=== PATIENT | female | born 1990 | race Two or more races ===

== ENCOUNTER 2016-06-03 19:20 | Emergency (ER) | payer MEDICAID ==
[2016-06-03] MEDS ORDERED: traMADol 50 MG TABLET PO STA (22:27)
[2016-06-03] MEDS ORDERED: traMADol 50 MG TABLET PO ONE (22:32)
== END 2016-06-03 22:37 | disposition home or self-care (01) ==
DX: O20.9 Hemorrhage in early pregnancy, unspecified (principal); O99.331 Smoking (tobacco) complicating pregnancy, first trimester; Z3A.01 Less than 8 weeks gestation of pregnancy
CPT/HCPCS: 84702; 85025; 99283; 99284; A9270

== ENCOUNTER 2016-06-05 14:03 | Outpatient (CLI) | payer MEDICAID | END 2016-06-05 14:04 | disposition home or self-care (01) | DX: Z36 Encounter for antenatal screening of mother (principal) ==

== ENCOUNTER 2016-06-16 17:03 | Emergency (ER) | payer MEDICAID ==
--- NOTE | 2016-06-16 17:25 | ED Physician Documentation ---
PD HPI CHEST PAIN - Stated complaint Stated Complaint: CHEST PAIN - Chief complaint Chief Complaint: Cardiac - History obtained from History obtained from: Patient - History of Present Illness Timing - onset: Other (26-year-old woman, 8 weeks , at work today she felt her heart was fluttering for about 30 seconds, this was followed by pain briefly and then soreness. It recurred shortly thereafter. Still has chest soreness, no associated shortness of breath, leg pain, swelling, current vaginal bleeding.) Review of Systems Constitutional: denies: Fever, Chills Cardiac: denies: Pedal edema, Calf pain Respiratory: denies: Dyspnea, Cough, Hemoptysis, Wheezing GI: denies: Abdominal Pain, Nausea PD PAST MEDICAL HISTORY - Past Medical History Past Medical History: Yes Respiratory: Asthma Psych: Depression, Anxiety - Past Surgical History Past Surgical History: Yes /PRIVATE BANKER: section HEENT: Tonsil/Adenoidectomy - Present Medications Home Medications: Ambulatory Orders Medication Instructions Recorded Confirmed Ondansetron Odt [Zofran] 4 mg TL Q6H PRN #30 tablet 05/29/16 - Allergies Allergies/Adverse Reactions: Allergies Allergy/AdvReac Type Severity Reaction Status Date / Time codeine Allergy Intermediate Unknown Verified 09/11/13 01:20 Penicillins Allergy Intermediate Rash Verified 09/11/13 01:20 - Social History Does the pt smoke?: Yes Smoking Status: Current every day smoker Does the pt drink ETOH?: Yes Does the pt have substance abuse?: No - Immunizations Immunizations are current?: Yes - POLST Patient has POLST: No PD ED PE NORMAL - Vitals Vital signs reviewed: Yes - General General: Alert and oriented X 3, No acute distress - Neck Neck: Supple, no meningeal sign - Cardiac Cardiac: RRR, No murmur - Respiratory Respiratory: No respiratory distress, Clear bilaterally - Abdomen Abdomen: Non tender - Extremities Extremities: No edema, No calf tenderness / cord - Neuro Neuro: Alert and oriented X 3, Normal speech - Psych Psych: Normal mood, Normal affect Results - Vitals Vitals: Vital Signs - 24 hr 06/16/16 06/16/16 17:12 18:28 Temperature 36.6 C 36.9 C Heart Rate 88 85 Respiratory 14 15 Rate Blood Pressure 134/86 H 126/80 O2 Saturation 99 98 Oxygen O2 Source Room air - EKG (time done) 1713 Rate: Rate (enter#) (83) Rhythm: NSR [place]: Normal Intervals: Normal IA QRS: Normal Ischemia: Normal ST segments Computer interpretation: Agree with computer - Labs Labs: Laboratory Tests 06/16/16 06/16/16 06/16/16 17:38 17:38 17:38 WBC 9.1 RBC 4.74 Hgb 14.3 Hct 41.0 MCV 86.5 MCH 30.1 MCHC 34.9 RDW 14.7 Plt Count 204 MPV 9.3 Neut # 6.0 Lymph # 2.1 [place] # 0.6 Eos # 0.3 Baso # 0.1 Absolute Nucleated RBC 0.00 Nucleated RBCs 0.0 Sodium 136 Potassium 3.7 Chloride 104 Carbon Dioxide 24 Anion Gap 8.0 BUN 9 Creatinine 0.5 Estimated GFR (MDRD) 152 Glucose 98 Calcium 9.6 Total Bilirubin 0.2 AST 18 ALT 11 Alkaline Phosphatase 60 Total Protein 7.2 Albumin 3.5 Globulin 3.7 Albumin/Globulin Ratio 0.9 L Lipase 26 TSH 0.88 PD MEDICAL DECISION MAKING - ED course ED course: This is a 26-year-old woman who presents with what sounds like resolved SVT symptoms. She was observed in the emergency department and there are no arrhythmias or further complaints, lab work is reassuring. The patient wwas counseled as to the diagnosis and need for followup. I counseled the patient with regard to signs and symptoms that would necessitate an urgent reevaluation in the emergency department. They understand they are welcome to return at any time if worse or if not improving as expected. This document was made in part using voice recognition software. While efforts are made to proofread this document, sound alike and grammatical errors may occur. Departure - Departure Disposition: Home, Self Care Clinical Impression: Palpitations Condition: Good Record reviewed to determine appropriate education?: Yes Instructions: ED Chest Pain NonCardiac Comments: If this happens again and lasts longer, return to the ER for reevaluation. If you continue having short episodes, followup with your DrBoo and discuss potentially a Holter monitor.
[2016-06-16 17:44] LABS: BASOPHILS # (AUTO) 0.1 10^3/uL (0.0-0.1); BASOPHILS % (AUTO) 0.7 %; EOSINOPHILS # (AUTO) 0.3 10^3/uL (0.0-0.7); EOSINOPHILS % (AUTO) 3.6 %; HGB - HEMOGLOBIN 14.3 g/dL (12.0-16.0); LYMPHOCYTES # (AUTO) 2.1 10^3/uL (1.5-3.5); LYMPHOCYTES % (AUTO) 23.1 %; MEAN CORPUSCULAR HEMOGLOBIN 30.1 pg (27.0-31.0); MEAN CORPUSCULAR HGB CONC 34.9 g/dL (32.0-36.0); MEAN CORPUSCULAR VOLUME 86.5 fL (81.0-99.0); MEAN PLATELET VOLUME 9.3 fL (7.9-10.8); MONOCYTES # (AUTO) 0.6 10^3/uL (0.0-1.0); MONOCYTES % (AUTO) 6.3 %; NEUTROPHILS % (AUTO) 66.3 %; RED BLOOD COUNT 4.74 10^6/uL (4.20-5.40); RED CELL DISTRIBUTION WIDTH 14.7 % (12.0-15.0); UNCORRECTED WHITE BLOOD COUNT 9.1 x10^3/uL; WHITE BLOOD COUNT 9.1 x10^3/uL (4.8-10.8)
[2016-06-16 17:58] LABS: ALBUMIN/GLOBULIN RATIO 0.9 (1.0-2.2); BILIRUBIN,TOTAL 0.2 mg/dL (0.2-1.0); CALCIUM 9.6 mg/dL (8.5-10.3); CREATININE 0.5 mg/dL (0.4-1.0); POTASSIUM 3.7 mmol/L (3.5-5.0); TOTAL PROTEIN 7.2 g/dL (6.7-8.2)
[2016-06-16 18:29] VITALS: BP 126/80
== END 2016-06-16 18:46 | disposition home or self-care (01) ==
LOC: ED 17:03
DX: R00.2 Palpitations (principal); O99.411 Diseases of the circulatory system complicating pregnancy, first trimester; O99.331 Smoking (tobacco) complicating pregnancy, first trimester; Z3A.08 8 weeks gestation of pregnancy
CPT/HCPCS: 36415; 80053; 83690; 84443; 85025; 93005; 93010; 99283; 99284

== ENCOUNTER 2016-09-07 11:14 | Outpatient (CLI) | payer MEDICAID | END 2016-09-07 11:15 | disposition home or self-care (01) | DX: Z34.82 Encounter for supervision of other normal pregnancy, second trimester (principal) ==

== ENCOUNTER 2016-10-22 15:17 | Outpatient (CLI) | payer MEDICAID | END 2016-10-22 15:18 | disposition home or self-care (01) | DX: Z36 Encounter for antenatal screening of mother (principal) ==

== ENCOUNTER 2016-11-21 17:48 | Outpatient (CLI) | payer MEDICAID ==
[2016-11-21 18:03] VITALS: BP 124/73
[2016-11-21 18:03] LABS: BILIRUBIN,URINE NEGATIVE (NEGATIVE); PH,URINE 6.5 PH (5.0-7.5); UA CHARGE (STRIP ONLY) YES; UR CULTURE IF IND NOT INDICATED
[2016-11-21 18:08] LABS: BASOPHILS # (AUTO) 0.1 10^3/uL (0.0-0.1); BASOPHILS % (AUTO) 0.4 %; EOSINOPHILS # (AUTO) 0.2 10^3/uL (0.0-0.7); HCT - HEMATOCRIT 31.6 % (37.0-47.0); HGB - HEMOGLOBIN 10.8 g/dL (12.0-16.0); LYMPHOCYTES # (AUTO) 1.9 10^3/uL (1.5-3.5); LYMPHOCYTES % (AUTO) 15.3 %; MEAN CORPUSCULAR HEMOGLOBIN 29.3 pg (27.0-31.0); MEAN CORPUSCULAR HGB CONC 34.2 g/dL (32.0-36.0); MEAN CORPUSCULAR VOLUME 85.9 fL (81.0-99.0); MEAN PLATELET VOLUME 8.5 fL (7.9-10.8); MONOCYTES # (AUTO) 0.8 10^3/uL (0.0-1.0); MONOCYTES % (AUTO) 6.6 %; NEUTROPHILS # (AUTO) 9.5 10^3/uL (1.5-6.6); NEUTROPHILS % (AUTO) 75.7 %; NUCLEATED RED BLOOD CELLS AUTO 0.1 /100WBC; RED BLOOD COUNT 3.68 10^6/uL (4.20-5.40); RED CELL DISTRIBUTION WIDTH 14.7 % (12.0-15.0); UNCORRECTED WHITE BLOOD COUNT 12.6 x10^3/uL; WHITE BLOOD COUNT 12.6 x10^3/uL (4.8-10.8)
[2016-11-21] MEDS ORDERED: TERBUTALINE 1 MG/ML VIAL SUBQ ONE (18:31)
[2016-11-21] MEDS ORDERED: TERBUTALINE 1 MG/ML VIAL SUBQ SCH (19:00)
--- NOTE | 2016-11-22 07:19 | HISTORY & PHYSICAL EXAMINATION ---
DATE OF ADMISSION/SURGERY: IDENTIFICATION: The patient is a 26-year-old. She is G4, P2, AB1 female whose EDC is 14 January, giving her a 32.2 EGA. CHIEF COMPLAINT: 1. Vaginal spasms. The patient states she has had this for years. It is worse with sitting and standing, walking. She states it is less with rest. 2. She also has complaints of cramping, which has been going down into the groin, which is better when she takes baths, and is once again worse with sitting and bending, stretching and walking. This has been going on since yesterday. 3. She also complains of some spontaneous contractions which are intermittent and sporadic in nature. She denies any history of any deliveries with her previous infants. However, she had some contractions with 1 requiring limited activity. She states her last intercourse was roughly 1 month ago. She also had some bleeding early in the . She is noted to be A positive. She has had 2 previous sections. PAST MEDICAL HISTORY: Positive for asthma. PAST SURGICAL HISTORY: section x2, D and C, as well as tonsillectomy and adenoidectomy. ALLERGIES: 1. PENICILLIN, WHICH CAUSES RASH. 2. CODEINE WITH UNKNOWN RESULT. 3. LATEX. CURRENT MEDICATIONS: vitamins. HABITS: The patient smokes 5 cigarettes per day, denies use of alcohol, tobacco , or street or addictive drugs. PHYSICAL EXAMINATION: The patient is a well-developed, well-nourished white female. She is no acute distress at this time. She is quiet in demeanor. HEENT: Pupils equal, round. Extraocular muscles intact. HEART: Regular rate and rhythm without murmurs. ABDOMEN: Gravid, roughly 32 cm above the fundus. There is vague tenderness, however, the uterus is soft throughout. There is tenderness in the groin area, particularly on the right hand side that duplicates some of the pain she is complaining of. Her symphysis shows some mild tenderness, but it does not duplicate the vaginal pain she is complaining of. Speculum examination reveals a cervix which was high in the pelvis. Cultures for group B strep were taken as well as obtaining an FFN. Internal examination reveals a cervix which was closed , long, posterior and high, feels as though there was a vertex presenting. IMPRESSION: 1. A 32 and 2/7 weeks. 2. Previous section x2. 3. Round ligament syndrome. 4. Uterine contractions which are irregular. PLAN: CBC has been obtained, which was noted to show some mild anemia. Urinalysis is negative at this time. FFN has been obtained and is currently pending. Terbutaline 0.25 was given subcutaneously for tocolysis. Will potentially send home the patient with 2.5 mg of terbutaline which she may take every 6 hours for contractions. We will also start her on iron for her anemia as well as give her stool softeners to prevent constipation. JOB #: [id number] EXT JOB #:[id number] BLESSING
== END 2016-11-21 19:25 | disposition home or self-care (01) ==
LOC: WFO 17:48 → OB 17:50 → WFO 19:25
PROVIDERS: ATTEND Obstetrics & Gynecology
DX: O60.03 Preterm labor without delivery, third trimester (principal); Z3A.32 32 weeks gestation of pregnancy
CPT/HCPCS: 81001; 81003; 82731; 85025; 87086; 87797; 99214

== ENCOUNTER 2016-12-12 21:16 | Outpatient (CLI) | payer MEDICAID ==
[2016-12-12 21:41] VITALS: BP 117/65
== END 2016-12-12 22:28 | disposition home or self-care (01) ==
LOC: WFO 21:16 → OB 21:17 → WFO 22:28
PROVIDERS: ATTEND Obstetrics & Gynecology
DX: Z34.83 Encounter for supervision of other normal pregnancy, third trimester (principal)
CPT/HCPCS: 99212

== ENCOUNTER 2016-12-25 08:00 | Outpatient (CLI) | payer MEDICAID | END 2016-12-25 08:01 | disposition home or self-care (01) | LOC: LAB.R 08:00 | PROVIDERS: ATTEND Obstetrics & Gynecology | DX: Z36 Encounter for antenatal screening of mother (principal) | CPT/HCPCS: 87081 ==

== ENCOUNTER 2017-01-07 10:28 | Outpatient (CLI) | payer MEDICAID ==
[2017-01-07 11:24] LABS: BASOPHILS % (AUTO) 0.4 %; EOSINOPHILS # (AUTO) 0.2 10^3/uL (0.0-0.7); EOSINOPHILS % (AUTO) 1.8 %; HCT - HEMATOCRIT 32.3 % (37.0-47.0); HGB - HEMOGLOBIN 11.2 g/dL (12.0-16.0); LYMPHOCYTES % (AUTO) 23.7 %; MEAN CORPUSCULAR HEMOGLOBIN 28.4 pg (27.0-31.0); MEAN CORPUSCULAR HGB CONC 34.5 g/dL (32.0-36.0); MEAN CORPUSCULAR VOLUME 82.4 fL (81.0-99.0); MEAN PLATELET VOLUME 8.2 fL (7.9-10.8); MONOCYTES # (AUTO) 0.6 10^3/uL (0.0-1.0); MONOCYTES % (AUTO) 7.2 %; NEUTROPHILS # (AUTO) 5.6 10^3/uL (1.5-6.6); NEUTROPHILS % (AUTO) 66.9 %; RED BLOOD COUNT 3.93 10^6/uL (4.20-5.40); RED CELL DISTRIBUTION WIDTH 16.1 % (12.0-15.0); UNCORRECTED WHITE BLOOD COUNT 8.4 x10^3/uL; WHITE BLOOD COUNT 8.4 x10^3/uL (4.8-10.8)
== END 2017-01-07 12:30 | disposition home or self-care (01) ==
LOC: WFO 10:28 → FBP 10:30 → WFO 12:30
PROVIDERS: ATTEND Obstetrics & Gynecology
DX: O34.211 Maternal care for low transverse scar from previous cesarean delivery (principal)
CPT/HCPCS: 36415; 85025; 86850; 86900; 86901

== ENCOUNTER 2017-01-09 00:57 | Inpatient (IN) | payer MEDICAID ==
--- NOTE | 2017-01-07 11:24 | PREOP HISTORY & PHYSICAL ---
DATE OF ADMISSION/SURGERY: 01/09/2017 HISTORY OF PRESENT ILLNESS: The patient is a 26-year-old female 4, para 2, AB 1. She has had 2 previous sections in 2011 and 2014. This has been essentially uncomplicated. She is A positive. She had a normal glucose screen of 111. Group B strep is negative. ALLERGIES 1. PENICILLIN. 2. CODEINE. 3. LATEX. CURRENT MEDICATIONS: vitamins. SOCIAL HISTORY: The patient is a nonsmoker. FAMILY HISTORY: Positive for HIV/AIDS in the patient's father, which caused his . REVIEW OF SYSTEMS: Negative with the exception of genitourinary, where the patient in the past had a low-grade squamous intraepithelial lesion which has since reverted to normal. PHYSICAL EXAMINATION HEENT: Within normal limits. NECK: No thyromegaly. LUNGS: Clear. HEART: Regular rhythm with no murmur or gallop. ABDOMEN: Gravid. Fundal height 35 cm. Placenta is anterior but ends above the incision. Vertex is pre senting. EXTREMITIES: Normal. NEUROLOGIC: Grossly intact. PELVIC: No exam done at this time. IMPRESSION 1. at term. 2. Previous sections. PLAN: Repeat section. Procedure and its risks have been explained to the patient who will re ceive prophylactic cefazolin. She received this in her previous deliveries without reaction. JOB #: [id number] EXT JOB #:[id number]
[2017-01-09] MEDS ORDERED: LACTATED RINGERS 1,500 ML IV SCH (06:00)
[2017-01-09] MEDS ORDERED: CITRIC ACID/SODIUM CITRATE 15 ML UDC PO SCH (06:00)
[2017-01-09] MEDS ORDERED: LACTATED RINGERS 1,000 ML IV ONE ×2 (06:00→07:44)
[2017-01-09] MEDS ORDERED: ceFAZolin 1 GM in SODIUM CHLORIDE 0.9% MINIBAG 100 ML IV SCH (06:00)
[2017-01-09] MEDS ORDERED: SODIUM CHLORIDE FLUSH 0.9% 10 ML SYRINGE IVP ONE (06:02)
[2017-01-09] MEDS ORDERED: ceFAZolin 1 GM VIAL ONE (06:29)
[2017-01-09] MEDS ORDERED: SODIUM CHLORIDE 0.9% 50 ML IV ONE (06:38)
[2017-01-09] MEDS ORDERED: MORPHINE PF 5 MG/10 ML AMP EP ONE (08:00)
[2017-01-09] MEDS ORDERED: SODIUM CHLORIDE 0.9% 100 ML BAG IV ONE (08:00)
[2017-01-09] MEDS ORDERED: PHENYLEPHRINE 10 MG/ML VIAL IV ONE (08:00)
[2017-01-09] MEDS ORDERED: OXYTOCIN 10 UNIT/ML VIAL IV ONE (08:00)
[2017-01-09] MEDS ORDERED: ACETAMINOPHEN 1,000 MG/100 ML VIAL IV ONE (08:00)
[2017-01-09] MEDS ORDERED: fentaNYL 100 MCG/2 ML VIAL IVP ONE (08:00)
[2017-01-09] MEDS ORDERED: ZOLPIDEM 5 MG TABLET PO PRN (08:47)
[2017-01-09] MEDS ORDERED: SODIUM CHLORIDE FLUSH 0.9% 10 ML SYRINGE IVP PRN (08:47)
--- NOTE | 2017-01-09 08:56 | DELIVERY NOTE ---
Delivery Note - Labor Labor: positive: Other (none) - Delivery Method Infant Delivery Method: positive: Repeat - Presentation Presentation: positive: Vertex - Nuchal Cord Nuchal Cord: positive: None - Anesthetic Anesthetic Type: Anesthetic: positive: Other (see anesthesia note) - Amniotic Fluid Description Amniotic Fluid Description: positive: Clear - Suture Suture Type: positive: Vicryl, Chromic - Delivery Outcome Delivery Outcome: positive: Livebirth - Dorothy: positive: Bulb syringe (Handed to Dr Carlin) Dorothy sex: positive: Female - Cord Cord: positive: 3 vessels - Placenta Placenta: positive: Manual removal - Estimated Blood Loss Estimated Blood Loss (in cc): 1,000 - Post Delivery Events Post Delivery Events: positive: No post delivery events (Delivery at 8:10. APGARS 9/9)
[2017-01-09] MEDS ORDERED: OXYTOCIN/LACTATED RINGERS 250 ML IV ONE (09:08)
--- NOTE | 2017-01-09 09:23 | OPERATIVE REPORT ---
DATE OF SURGERY: 01/09/2017 00:00:00 PREOPERATIVE DIAGNOSIS: at term with previous sections. POSTOPERATIVE DIAGNOSIS: delivered. NAME OF PROCEDURE: Repeat section, low transverse. SURGEON: Nick Abdalla MD ANESTHESIA: Adriana Blake DO FOOT DRILL OPERATOR: Vitaly Carlin MD ANESTHESIA: Spinal. PROCEDURE DESCRIPTION: In the supine position with right hip elevation, under spinal anesthesia the a bdomen was prepped and draped in the usual sterile fashion. Previous Pfannenstiel cicatrix was excise d sharply and with Bovie, and incision was carried to the fascia with Bovie. The fascia was incised t ransversely and dissected free from the underlying rectus muscles with Bovie. The peritoneum was open ed vertically in a sharp fashion. The vesicouterine peritoneum was incised transversely over the lowe r uterine segment, and the bladder bluntly advanced. The myometrium was incised and extended transver sely in a blunt fashion. A female was delivered from the vertex position at 0810, Apgars were 9 and 9. The placenta was manually removed, the myometrium was noted to be very thin on the lower par t of the incision, and the uterine incision was closed with 0 chromic in a running locking fashion, a nd then imbricated with 0 chromic in Lembert fashion. [id number] suture was placed at the right extent of the incision for added hemostasis. The abdominal cavity was irrigated with sterile saline a nd the parietal peritoneum was closed with running 2-0 Vicryl. The fascia was closed with running 0 V icryl, plain interrupted subcutaneous sutures were placed, and the skin was approximated with 4-0 Korey ryl in a subcutaneous fashion. Estimated blood loss was 1000 mL. The patient received 1 g of Ancef pr eoperatively. There were no intraoperative complications. 0 JOB #: [id number] EXT JOB #:[id number]
[2017-01-09] MEDS: IBUPROFEN 600 MG TABLET PO SCH ×2 (11:00→17:04)
[2017-01-09] MEDS: oxyCOD/ACETAMIN 5 MG/325 MG TABLET PO PRN ×3 (11:00→20:16)
[2017-01-09] MEDS: DOCUSATE SODIUM 100 MG CAPSULE PO SCH (11:01)
[2017-01-09] MEDS: OXYTOCIN/LACTATED RINGERS 250 ML IV ONE ×2 (11:01→14:36)
[2017-01-09] MEDS: SODIUM CHLORIDE FLUSH 0.9% 10 ML SYRINGE IVP SCH (13:52)
[2017-01-09] MEDS ORDERED: NALOXONE 0.4 MG/ML VIAL IVP PRN (14:00)
[2017-01-09] MEDS ORDERED: diphenhydrAMINE INJ 50 MG/ML VIAL IVP PRN (14:00)
[2017-01-09] MEDS ORDERED: MORPHINE 2 MG/ML SYRINGE IVP PRN (14:00)
[2017-01-09] MEDS ORDERED: NALBUPHINE 20 MG/ML AMP IVP PRN (14:00)
[2017-01-09] MEDS ORDERED: diphenhydrAMINE 25 MG CAPSULE PO PRN (14:00)
[2017-01-09] MEDS ORDERED: ONDANSETRON 4 MG/2 ML VIAL IVP PRN (14:00)
[2017-01-09] MEDS ORDERED: METOCLOPRAMIDE 10 MG/2 ML VIAL IVP PRN (14:00)
[2017-01-09] MEDS: SIMETHICONE CHEW 80 MG TABLET PO SCH ×2 (14:40→15:56)
[2017-01-10] MEDS: SIMETHICONE CHEW 80 MG TABLET PO SCH ×3 (00:41→13:28)
[2017-01-10] MEDS: IBUPROFEN 600 MG TABLET PO SCH ×5 (00:41→20:58)
[2017-01-10] MEDS: oxyCOD/ACETAMIN 5 MG/325 MG TABLET PO PRN ×5 (00:41→20:59)
[2017-01-10 06:53] LABS: BASOPHILS # (AUTO) 0.1 10^3/uL (0.0-0.1); BASOPHILS % (AUTO) 0.8 %; EOSINOPHILS # (AUTO) 0.2 10^3/uL (0.0-0.7); EOSINOPHILS % (AUTO) 1.6 %; HCT - HEMATOCRIT 30.9 % (37.0-47.0); HGB - HEMOGLOBIN 10.5 g/dL (12.0-16.0); LYMPHOCYTES # (AUTO) 2.2 10^3/uL (1.5-3.5); LYMPHOCYTES % (AUTO) 20.5 %; MEAN CORPUSCULAR HEMOGLOBIN 28.5 pg (27.0-31.0); MEAN CORPUSCULAR VOLUME 83.8 fL (81.0-99.0); MEAN PLATELET VOLUME 8.5 fL (7.9-10.8); MONOCYTES % (AUTO) 9.2 %; NEUTROPHILS # (AUTO) 7.3 10^3/uL (1.5-6.6); NEUTROPHILS % (AUTO) 67.9 %; RED BLOOD COUNT 3.69 10^6/uL (4.20-5.40); RED CELL DISTRIBUTION WIDTH 16.3 % (12.0-15.0); UNCORRECTED WHITE BLOOD COUNT 10.7 x10^3/uL; WHITE BLOOD COUNT 10.7 x10^3/uL (4.8-10.8)
--- NOTE | 2017-01-10 08:20 | PROVIDER PROGRESS NOTE ---
Subjective - General Admit Date: 01/09/17 Procedure Date: 01/09/17 Post Op Days: 1 Procedure Performed: repeat - Review of Systems Wound/Incisions: positive: Drainage (Serous drainage on dressing) General: positive: Other (Light headed on rising.) Gastrointestinal: positive: Other (Pain 5/10. Renea feels control is adequate. ) Objective - Patient Data Reviewed Vital Signs: Yes Vital Signs: Vital Signs x48h Temp Pulse Resp BP Pulse Ox 01/10/17 04:30 37.0 C 69 18 81/44 L 96 01/10/17 00:30 37.0 C 73 20 99/60 97 Weight: Weight 01/08/17 01/09/17 01/10/17 23:59 23:59 23:59 Weight (kg) 83.461 kg Intake & Output: Intake and Output Totals x24h 01/08/17 01/09/17 01/10/17 23:59 23:59 23:59 Intake Total 1700 600 Output Total 750 Balance 950 600 - Lab Results Lab Results: 01/10/17 06:45 Other Lab Results: Lab Results x24hrs 01/10/17 Range/Units 06:45 WBC 10.7 (4.8-10.8) x10^3/uL RBC 3.69 L (4.20-5.40) 10^6/uL Hgb 10.5 L (12.0-16.0) g/dL Hct 30.9 L (37.0-47.0) % MCV 83.8 (81.0-99.0) fL MCH 28.5 (27.0-31.0) pg MCHC 34.0 (32.0-36.0) g/dL RDW 16.3 H (12.0-15.0) % Plt Count 181 (130-450) 10^3/uL MPV 8.5 (7.9-10.8) fL Neut # 7.3 H (1.5-6.6) 10^3/uL Lymph # 2.2 (1.5-3.5) 10^3/uL [place] # 1.0 (0.0-1.0) 10^3/uL Eos # 0.2 (0.0-0.7) 10^3/uL Baso # 0.1 (0.0-0.1) 10^3/uL Absolute Nucleated RBC 0.00 x10^3/uL Nucleated RBCs 0.0 /100WBC - Current Medications Current Medications: Current Medications Generic Name Dose Route Start Last Admin Trade Name Freq PRN Reason Stop Dose Admin Docusate Sodium 100 mg 01/09/17 09:00 01/09/17 11:01 Colace 100mg Capsule PO 100 mg BID ASHLEE Administration Ibuprofen 600 mg 01/09/17 09:00 01/10/17 06:54 Motrin PO 600 mg Q6H ASHLEE Administration Oxycodone/Acetaminophen 2 tab 01/09/17 08:47 01/10/17 06:54 Percocet 5 Mg/325 Mg PO 2 tab Q4HR PRN Administration PAIN Simethicone 80 mg 01/09/17 14:00 01/10/17 00:41 Mylicon PO 80 mg TID ASHLEE Administration Sodium Chloride 10 ml 01/09/17 14:00 01/09/17 13:52 Normal Saline Flush 0.9% IVP 10 ml Q8HR ASHLEE Administration - Physical Exam Wound/Incisions: positive: Drainage (Serous.) General Appearance: positive: No acute distress Abdomen: positive: Nml bowel sounds, No distention (Fundus 2 FB below umbilicus. ) Impression/Plan - Problem List Problem List: Voiding well. Rodriguez out last night. Lochia normal. HGB 10.5. BP low- encourage fluid intake.
[2017-01-10] MEDS: DOCUSATE SODIUM 100 MG CAPSULE PO SCH ×3 (09:41→20:59)
[2017-01-10] MEDS: LACTATED RINGERS 1,000 ML IV SCH ×3 (21:54→21:58)
[2017-01-10] MEDS: SODIUM CHLORIDE FLUSH 0.9% 10 ML SYRINGE IVP SCH ×2 (21:55→21:57)
[2017-01-11] MEDS: SODIUM CHLORIDE FLUSH 0.9% 10 ML SYRINGE IVP SCH (00:06)
[2017-01-11] MEDS: LACTATED RINGERS 1,000 ML IV SCH (02:44)
[2017-01-11] MEDS: IBUPROFEN 600 MG TABLET PO SCH ×2 (04:11→10:07)
[2017-01-11] MEDS: oxyCOD/ACETAMIN 5 MG/325 MG TABLET PO PRN ×2 (04:11→09:21)
--- NOTE | 2017-01-11 08:27 | DISCHARGE SUMMARY ---
Discharge Summary Admit Date: 01/09/17 Discharge Date: 01/11/17 Discharging Provider: Lianne Chase Status: Attempt Resuscitation Condition at Discharge: Good Discharge Disposition: 01 Home, Self Care - DIAGNOSES Admission Diagnoses: with previous Discharge Diagnoses with Status of Each Condition: delivered - HOSPITAL COURSE Hospital Course: Repeat c/s on 01/09. Normal course - ALLERGIES Allergies/Adverse Reactions: Allergies Allergy/AdvReac Type Severity Reaction Status Date / Time codeine Allergy Intermediate Unknown Verified 09/11/13 01:20 Penicillins Allergy Intermediate Rash Verified 09/11/13 01:20 - MEDICATIONS Home Medications: Ambulatory Orders Medication Instructions Recorded Confirmed Ondansetron Odt [Zofran] 4 mg TL Q6H PRN #30 tablet 05/29/16 Ibuprofen 600 mg PO Q6HR PRN #30 tablet 01/11/17 oxyCODONE/ACET 5/325 [Percocet 5 1 each PO Q4-6H PRN #20 tablet 01/11/17 mg/325 mg] - PHYSICAL EXAM AT DISCHARGE General Appearance: positive: No acute distress Abdomen: positive: Non-tender, Nml bowel sounds (Incision clean and dry) - LABS Result Diagrams: 01/10/17 06:45
[2017-01-11] MEDS: DOCUSATE SODIUM 100 MG CAPSULE PO SCH (09:20)
[2017-01-11] MEDS: SIMETHICONE CHEW 80 MG TABLET PO SCH (09:21)
--- NOTE | 2017-01-11 10:28 | DISCHARGE SUMMARY ---
DATE OF ADMISSION: 01/09/2017 DATE OF DISCHARGE: ADMISSION DIAGNOSIS: at term with 2 previous sections. OPERATION: Repeat section, low transverse. DISCHARGE DIAGNOSIS: delivered. HISTORY OF PRESENT ILLNESS: The patient is a 26-year-old female, 4, now para 3, AB 1, who had an uneventful . She has had 2 previous sections. She is A positive, rubella immune . She had a negative glucose screen during her . Physical exam on admission was normal with the exception of the following: The abdomen was gravid, fu ndal height 35 cm. Vertex was presenting. Placenta was anterior but ended above the incision. LABORATORY STUDIES CONDUCTED: Hemoglobin at discharge 10.5. PATIENT'S COURSE AND TREATMENT: On the day of admission under spinal anesthesia a repeat sec tion was performed resulting in a female infant weighing 7 pounds 8.6 ounces with Apgars of 9 and 9. Postoperatively, mother and baby did well. The patient had normal return of bowel function. She was e ating well. Incision was clean and dry at discharge. She had no fevers during her hospitalization. Recommended followup is for 2 weeks. DISCHARGE MEDICINES: Include 1. vitamins. 2. Ibuprofen. 3. Percocet. JOB #: [id number] EXT JOB #:[id number]
[2017-01-11 14:11] VITALS: BP 113/64
== END 2017-01-11 15:30 | disposition home or self-care (01) | DRG 766 ==
LOC: FBP 05:28
PROVIDERS: ADMIT Obstetrics & Gynecology; ATTEND Obstetrics & Gynecology
PROC: 10D00Z1 Extraction of Products of Conception, Low, Open Approach (ICD-10-PCS; principal; 2017-01-09 07:30)
DX: O34.211 Maternal care for low transverse scar from previous cesarean delivery (principal); Z3A.39 39 weeks gestation of pregnancy; Z37.0 Single live birth
CPT/HCPCS: 36415; 85025

== ENCOUNTER 2017-02-04 21:11 | Emergency (ER) | payer MEDICAID ==
--- NOTE | 2017-02-04 21:26 | ED Physician Documentation ---
PD HPI WOUND RECHECK - Stated complaint Stated Complaint: WOUND CHECK - Chief complaint Chief Complaint: General - Histroy obtained from History obtained from: Patient - History of Present Illness Location: Abdomen, Other () Timing - onset: How many days ago (several) Pain level max: 4 Pain level now: 3 Associated symptoms: Redness, Swelling, Drainage (white) Similar symptoms before: Has not had sx before - Additional information Additional information: Patient is a 26-year-old female who is approximately 4 weeks status post a C- section. Baby is doing well at home. She states that she is concerned about a wound infection, states at her two-week postoperative visit there was some white drainage, but they told her to keep an eye on it. She states that tonight she developed a fever at home, increasing redness to the wound and white drainage again. She called the on-call elementary reading specialist who told her to come to the emergency department for evaluation. Review of Systems Constitutional: reports: Fever (102) Ears: denies: Ear pain Nose: denies: Rhinorrhea / runny nose, Congestion Throat: denies: Sore throat Cardiac: denies: Chest pain / pressure Respiratory: denies: Cough GI: denies: Nausea, Vomiting, Diarrhea Skin: denies: Rash Musculoskeletal: denies: Neck pain, Back pain Neurologic: denies: Headache PD PAST MEDICAL HISTORY - Past Medical History Respiratory: Asthma Psych: Depression, Anxiety - Past Surgical History Past Surgical History: Yes /TOUR OPERATOR: section HEENT: Tonsil/Adenoidectomy - Present Medications Home Medications: Ambulatory Orders Medication Instructions Recorded Confirmed oxyCODONE/ACET 5/325 [Percocet 5 1 each PO Q4-6H PRN #20 tablet 01/11/17 mg/325 mg] Cephalexin [Keflex] 500 mg PO Q6H #28 capsule 02/04/17 Sulfamethox/Trimeth 800/160 1 each PO BID #14 tablet 02/04/17 [Bactrim Ds 800/160] - Allergies Allergies/Adverse Reactions: Allergies Allergy/AdvReac Type Severity Reaction Status Date / Time codeine Allergy Intermediate Unknown Verified 02/04/17 21:24 Penicillins Allergy Intermediate Rash Verified 02/04/17 21:24 - Social History Does the pt smoke?: Yes Smoking Status: Current every day smoker Does the pt drink ETOH?: Yes Does the pt have substance abuse?: No - Immunizations Immunizations are current?: Yes - POLST Patient has POLST: No PD ED PE NORMAL - Vitals Vital signs reviewed: Yes - General General: Alert and oriented X 3, No acute distress - HEENT HEENT: Moist mucous membranes - Neck Neck: Supple, no meningeal sign - Cardiac Cardiac: RRR - Respiratory Respiratory: No respiratory distress, Clear bilaterally - Abdomen Abdomen: Soft, Non distended, Other (Mild lower abdominal tenderness to palpation. Her incision appears to have mild cellulitis surrounding it and there is a small amount of purulent material at the leftward end of the incision.) - Female Female : Other (deferred to OB) - Back Back: No CVA TTP, No spinal TTP - Derm Derm: Warm and dry, No rash - Extremities Extremities: No edema - Neuro Neuro: Alert and oriented X 3 - Psych Psych: Normal mood, Normal affect Results - Vitals Vitals: Vital Signs - 24 hr 02/04/17 02/04/17 02/04/17 21:18 21:51 23:41 Temperature 39.0 C H 37.5 C 36.9 C Heart Rate 89 80 Respiratory 16 16 Rate Blood Pressure 117/73 108/71 O2 Saturation 97 99 Oxygen O2 Source Room air - Labs Labs: Laboratory Tests 02/04/17 02/04/17 21:45 21:45 WBC 7.6 RBC 4.85 Hgb 13.3 Hct 39.6 MCV 81.6 MCH 27.5 MCHC 33.7 RDW 16.2 H Plt Count 217 MPV 8.5 Neut # 5.9 Lymph # 0.8 L Tripp # 0.6 Eos # 0.1 Baso # 0.2 H Absolute Nucleated RBC 0.00 Nucleated RBCs 0.0 Sodium 139 Potassium 4.0 Chloride 105 Carbon Dioxide 26 Anion Gap 8.0 BUN 13 Creatinine 1.0 Estimated GFR (MDRD) 68 L Glucose 96 Calcium 10.2 - Rads (name of study) CT abd/pelvis Radiology: Prelim report reviewed, EMP read contemporaneously, See rad report ( No acute abnormalities to explain patient's symptoms. 2. Unremarkable scar. 3. Rectus dehiscence, roughly 12 cm long. ) PD MEDICAL DECISION MAKING - ED course Complexity details: reviewed results, re-evaluated patient, considered differential, d/w patient, d/w sap pp consultant ED course: Patient is a 26-year-old female who presents to the emergency department with what appears to be a wound infection. Does have MRSA risk and will cover with Bactrim and Keflex. Concerned that she had elevated temperature at home of approximately 102. Normal white count here. OB, Dr. Navarrete, came and evaluated the patient and performed the pelvic examination without any acute abnormalities. CT scan was performed as this appears to been ongoing for approximately 3 weeks, but only with a mild cellulitis, therefore concerned about a possible intra-abdominal infection from the surgery. CT does not show any acute abnormalities. Will place on antibiotics and follow-up closely with OB this week. Patient counseled regarding signs and symptoms for which I believe and urgent re-evaluation would be necessary. Patient with good understanding of and agreement to plan and is comfortable going home at this time This document was made in part using voice recognition software. While efforts are made to proofread this document, sound alike and grammatical errors may occur. Patient is very well-appearing, nontoxic. Departure - Departure Disposition: 01 Home, Self Care Clinical Impression: Cellulitis Qualifiers: Site of cellulitis: trunk Site of cellulitis of trunk: abdominal wall Qualified Code(s): L03.311 - Cellulitis of abdominal wall Postoperative wound infection Qualifiers: Encounter type: initial encounter Qualified Code(s): T81.4XXA - Infection following a procedure, initial encounter Condition: Good Instructions: ED Infec Skin Cellulitis Follow-Up: Nick Abdalla MD [Primary Care Provider] - Within 3 Days (call for an appointment.) Prescriptions: Sulfamethox/Trimeth 800/160 [Bactrim Ds 800/160] 1 each PO BID #14 tablet Cephalexin [Keflex] 500 mg PO Q6H #28 capsule Comments: Take all antibiotics until gone. Return if you worsen. You need to be seen by the OB clinic later this week. Dr. Navarrete evaluated you tonight. Discharge Date/Time: 02/04/17 23:41
[2017-02-04 22:01] LABS: BASOPHILS # (AUTO) 0.2 10^3/uL (0.0-0.1); BASOPHILS % (AUTO) 2.6 %; EOSINOPHILS # (AUTO) 0.1 10^3/uL (0.0-0.7); HCT - HEMATOCRIT 39.6 % (37.0-47.0); HGB - HEMOGLOBIN 13.3 g/dL (12.0-16.0); LYMPHOCYTES # (AUTO) 0.8 10^3/uL (1.5-3.5); LYMPHOCYTES % (AUTO) 10.8 %; MEAN CORPUSCULAR HEMOGLOBIN 27.5 pg (27.0-31.0); MEAN CORPUSCULAR HGB CONC 33.7 g/dL (32.0-36.0); MEAN CORPUSCULAR VOLUME 81.6 fL (81.0-99.0); MEAN PLATELET VOLUME 8.5 fL (7.9-10.8); MONOCYTES # (AUTO) 0.6 10^3/uL (0.0-1.0); MONOCYTES % (AUTO) 8.2 %; NEUTROPHILS # (AUTO) 5.9 10^3/uL (1.5-6.6); NEUTROPHILS % (AUTO) 77.4 %; RED BLOOD COUNT 4.85 10^6/uL (4.20-5.40); RED CELL DISTRIBUTION WIDTH 16.2 % (12.0-15.0); UNCORRECTED WHITE BLOOD COUNT 7.6 x10^3/uL; WHITE BLOOD COUNT 7.6 x10^3/uL (4.8-10.8)
[2017-02-04 22:02] LABS: CALCIUM 10.2 mg/dL (8.5-10.3)
[2017-02-04] MEDS: IOPAMIDOL-300 100 ML VIAL IVP ONE (22:56)
--- NOTE | 2017-02-04 23:21 | CT Preliminary Report ---
Exam: CT Abdomen/Pelvis W/ IMPRESSION: 1. No acute abnormalities to explain patient's symptoms. 2. Unremarkable scar. 3. Rectus dehiscence, roughly 12 cm long. [facility] SITE ID: [id number]
--- NOTE | 2017-02-04 23:23 | CT Report ---
EXAM: CT ABDOMEN AND PELVIS EXAM DATE: 02/04/2017 10:59 PM. CLINICAL HISTORY: Abdomen pain, fever s/p . COMPARISONS: None. TECHNIQUE: Routine helical CT imaging was performed through the abdomen and pelvis. IV contrast: Amt/ type. Enteric contrast: No. Reconstructions: Coronal and sagittal. In accordance with CT protocol optimization, one or more of the following dose reduction techniques w ere utilized for this exam: automated exposure control, adjustment of mA and/or KV based on patient s ize, or use of iterative reconstructive technique. FINDINGS: Lung Bases: Unremarkable. Liver: Normal. No masses. Gallbladder/Bile Ducts: Unremarkable. Spleen: Normal. Pancreas: Normal. Adrenal Glands: Normal. Kidneys: Normal. No masses or hydronephrosis. Peritoneal Cavity/Bowel: Normal. No free fluid, free air or adenopathy. No masses or acute inflammato ry process. The appendix is well visualized and normal. Pelvic Organs: Normal. The bladder and visualized pelvic organs are within normal limits. Vasculature: No aneurysms or other significant abnormality. Bones: No significant abnormality. Other: Stranding noted from prior . No associated fluid collections. Rectus dehiscence noted in the subumbilical region about 12 cm long. IMPRESSION: 1. No acute abnormalities to explain patient's symptoms. 2. Unremarkable scar. 3. Rectus dehiscence, roughly 12 cm long. [facility] Referring Provider Line: [phone] SITE ID: [id number]
[2017-02-04] MEDS: CEPHALEXIN 250 MG CAPSULE PO STA (23:30)
[2017-02-04] MEDS: SULFAMETH/TRIMETH DS 800/160 MG TABLET PO STA (23:31)
[2017-02-04] MEDS ORDERED: CEPHALEXIN 250 MG CAPSULE PO ONE (23:32)
[2017-02-04] MEDS ORDERED: SULFAMETH/TRIMETH DS 800/160 MG TABLET PO ONE (23:32)
--- NOTE | 2017-02-04 23:37 | CONSULTATION NOTE ---
DATE OF CONSULTATION: 02/04/2017 00:00:00 REQUESTING PROVIDER: DATE OF ADMISSION: 02/04/2017 ER CONSULTATION HISTORY OF PRESENT ILLNESS: The patient is a 26-year-old 4, para 3, aborta 1 woman who underwent uneventful repeat section with Dr. Abdalla on 01/09/2017. The proceed ed unremarkably under spinal anesthetic without any complications noted. Two weeks postop the patient noted some whitish fluid exuding from the left margin of the Pfannenstiel wound. Gradually this sub sided. Over the last week she has noted night sweats, chills, and has noted a fever of 102 degrees. S he has been busy and did not return to the office for evaluation. Tonight, the patient notes the pelvic tenderness in addition to wound discharge and fever. She has no t taken any outpatient antibiotics. She not been sexually active. She has a distant history of chlamy mario, which was successfully treated with azithromycin. PAST MEDICAL HISTORY: The patient denies chronic disease history or hospitalizations. PAST SURGICAL HISTORY: Repeat x3, childhood tonsillectomy and adenoidectomy. ALLERGIES: THE PATIENT REPORTS PENICILLIN CAUSES A RASH, DOES LATEX, NONSPECIFIC ALLERGY TO CODEIN E. FAMILY HISTORY: Depression. No diabetes or cardiovascular disease. SOCIAL HISTORY: Denies drug, tobacco or alcohol use. REVIEW OF SYSTEMS: CONSTITUTIONAL: Positive night sweats, fevers, chills. HEENT: Negative. PULMONARY: Negative. CARDIAC: Negative. GASTROINTESTINAL: Abdominal pain, mostly in bilateral lower quadrants. GENITOURINARY: Foul discharge: MUSCULOSKELETAL: Negative. LYMPHATIC: Negative. SKIN: Negative. PHYSICAL EXAMINATION: HEENT: Nonicteric sclerae, EOMI. Moist mucous membranes. NECK: Supple neck. No thyromegaly. LUNGS: Clear. CARDIAC: Regular, no murmur, no gallop. BREASTS: Nontender. No erythema, no axillary lymphadenopathy. ABDOMEN: Obese, Pfannenstiel scar. Bilateral lower quadrant tenderness with no rebound. EXTERNAL GENITALIA: shaven pubic hair, no lesions. VAGINA: Foul serosanguineous discharge, cultures taken. CERVIX: Nulliparous, mild cervical motion tenderness. UTERUS: Tender adnexae. Due to pelvic tenderness cannot appreciate the adnexa well. Wound, healing Pf annenstiel wound with induration on the left side, halo approximately 1 cm opening in left corner wit h foul serosanguineous discharge. LABORATORIES: Sodium 139, potassium 4.0, GFR 68 low, glucose 96. White count is 7.6 with a basophilia , hemoglobin 13.3, platelets 217. ASSESSMENT: The patient has a known wound infection that has been slow to heal. Currently, there seem s to be adequate drainage without performing a formal I and D. Suspect mixed culture with gram-positi ve negative and anaerobes. There is possibility of MRSA as well. Given the pelvic tenderness a CT sca n is advisable. PLAN: If a CT scan is negative, will begin oral antibiotic regimen with first generation cephalospori ns and Bactrim. If there is evidence of intra-abdominal infection we will begin IV antibiotics. Await CT scan results. JOB #: [id number] EXT JOB #:[id number]
[2017-02-04 23:44] VITALS: BP 108/71
== END 2017-02-04 23:41 | disposition home or self-care (01) ==
LOC: ED 21:11
DX: O86.0 Infection of obstetric surgical wound (principal); L03.319 Cellulitis of trunk, unspecified; F17.200 Nicotine dependence, unspecified, uncomplicated
CPT/HCPCS: 36415; 74177; 80048; 85025; 87070; 87205; 87210; 87491; 87591; 99283; 99284

== ENCOUNTER 2017-03-21 16:41 | Emergency (ER) | payer MEDICAID ==
[2017-03-21 17:07] LABS: BILIRUBIN,URINE NEGATIVE (NEGATIVE); PH,URINE 7.5 PH (5.0-7.5)
[2017-03-21 17:09] LABS: UA CHARGE (STRIP ONLY) YES; UR CULTURE IF IND NOT INDICATED
[2017-03-21 17:10] LABS: HCG UR QUAL NEGATIVE
[2017-03-21 17:18] LABS: BASOPHILS # (AUTO) 0.1 10^3/uL (0.0-0.1); BASOPHILS % (AUTO) 0.6 %; EOSINOPHILS # (AUTO) 0.3 10^3/uL (0.0-0.7); EOSINOPHILS % (AUTO) 2.3 %; HCT - HEMATOCRIT 42.6 % (37.0-47.0); LYMPHOCYTES # (AUTO) 2.9 10^3/uL (1.5-3.5); LYMPHOCYTES % (AUTO) 25.6 %; MEAN CORPUSCULAR HEMOGLOBIN 28.1 pg (27.0-31.0); MEAN CORPUSCULAR HGB CONC 32.8 g/dL (32.0-36.0); MEAN CORPUSCULAR VOLUME 85.7 fL (81.0-99.0); MEAN PLATELET VOLUME 8.5 fL (7.9-10.8); MONOCYTES # (AUTO) 0.8 10^3/uL (0.0-1.0); MONOCYTES % (AUTO) 6.8 %; NEUTROPHILS # (AUTO) 7.4 10^3/uL (1.5-6.6); NEUTROPHILS % (AUTO) 64.7 %; RED BLOOD COUNT 4.97 10^6/uL (4.20-5.40); RED CELL DISTRIBUTION WIDTH 18.3 % (12.0-15.0); UNCORRECTED WHITE BLOOD COUNT 11.5 x10^3/uL; WHITE BLOOD COUNT 11.5 x10^3/uL (4.8-10.8)
[2017-03-21 17:28] LABS: ALBUMIN/GLOBULIN RATIO 1.3 (1.0-2.2); BILIRUBIN,TOTAL 0.8 mg/dL (0.2-1.0); CALCIUM 9.9 mg/dL (8.5-10.3); CREATININE 1.1 mg/dL (0.4-1.0); POTASSIUM 3.8 mmol/L (3.5-5.0); TOTAL PROTEIN 8.1 g/dL (6.7-8.2)
[2017-03-21] MEDS ORDERED: oxyCOD/ACETAMIN 5 MG/325 MG TABLET PO STA (17:28)
[2017-03-21] MEDS ORDERED: oxyCOD/ACETAMIN 5 MG/325 MG TABLET PO ONE (17:42)
--- NOTE | 2017-03-21 17:46 | ED Physician Documentation ---
PD HPI ABD PAIN - Stated complaint Stated Complaint: ABD PX - Chief complaint Chief Complaint: Abd Pain - History obtained from History obtained from: Patient, Family - History of Present Illness Timing - onset: How many hours ago (1) Timing - duration: Hours (1) Timing - details: Abrupt onset Pain level max: 9 Pain level now: 9 Quality: Aching, Pain Location: Other (pelvic) Radiation: Other (non-radiating) Improved by: Laying still Worsened by: Moving Associated symptoms: No: Fever, Nausea, Vomiting, Hematemesis, Diarrhea, Constipation, Near syncope / syncope, Vaginal bleeding, Vaginal dc Recently seen: Clinic (IUD placed 1 month ago) - Additional information Additional information: States when to get up off the toilet and felt a sharp pain in her lower abdomen , this has continued since that time. Had an IUD placed approximately 1 month ago. Is not currently or breast-feeding Review of Systems Constitutional: denies: Fever, Chills Throat: denies: Sore throat Cardiac: denies: Chest pain / pressure Respiratory: denies: Cough GI: denies: Nausea, Vomiting, Diarrhea Skin: denies: Rash Musculoskeletal: denies: Neck pain, Back pain Neurologic: denies: Headache PD PAST MEDICAL HISTORY - Past Medical History Past Medical History: Yes Respiratory: Asthma Psych: Depression, Anxiety - Past Surgical History Past Surgical History: Yes /[employer]ACHINE: section HEENT: Tonsil/Adenoidectomy - Present Medications Home Medications: Ambulatory Orders Medication Instructions Recorded Confirmed Oxycodone HCl/Acetaminophen 1 - 2 each PO Q6H PRN #14 tablet 03/21/17 [Percocet 5-325 mg Tablet] - Allergies Allergies/Adverse Reactions: Allergies Allergy/AdvReac Type Severity Reaction Status Date / Time codeine Allergy Intermediate Unknown Verified 03/21/17 16:48 Penicillins Allergy Intermediate Rash Verified 03/21/17 16:48 - Social History Does the pt smoke?: Yes Smoking Status: Current every day smoker Does the pt drink ETOH?: Yes Does the pt have substance abuse?: No - Immunizations Immunizations are current?: Yes - POLST Patient has POLST: No PD ED PE NORMAL - Vitals Vital signs reviewed: Yes - General General: Alert and oriented X 3, No acute distress, Well developed/nourished - HEENT HEENT: PERRL, Moist mucous membranes - Neck Neck: Supple, no meningeal sign - Cardiac Cardiac: RRR, Strong equal pulses - Respiratory Respiratory: No respiratory distress, Clear bilaterally - Abdomen Abdomen: Soft, Non tender, Non distended - Female Female : Pt declined - Back Back: No CVA TTP - Derm Derm: Warm and dry, No rash - Neuro Neuro: Alert and oriented X 3 - Psych Psych: Normal mood, Normal affect Results - Vitals Vitals: Vital Signs - 24 hr 03/21/17 03/21/17 16:45 19:32 Temperature 36.9 C 36.4 C L Heart Rate 64 69 Respiratory 18 20 Rate Blood Pressure 123/79 108/64 O2 Saturation 100 99 Oxygen O2 Source Room air - Labs Labs: Laboratory Tests 03/21/17 03/21/17 03/21/17 17:03 17:12 17:12 WBC 11.5 H RBC 4.97 Hgb 14.0 Hct 42.6 MCV 85.7 MCH 28.1 MCHC 32.8 RDW 18.3 H Plt Count 259 MPV 8.5 Neut # 7.4 H Lymph # 2.9 Navarro # 0.8 Eos # 0.3 Baso # 0.1 Absolute Nucleated RBC 0.00 Nucleated RBC % 0.0 Sodium 136 Potassium 3.8 Chloride 103 Carbon Dioxide 24 Anion Gap 9.0 BUN 17 Creatinine 1.1 H Estimated GFR (MDRD) 61 L Glucose 95 Calcium 9.9 Total Bilirubin 0.8 AST 40 ALT 35 Alkaline Phosphatase 78 Total Protein 8.1 Albumin 4.6 Globulin 3.5 Albumin/Globulin Ratio 1.3 Lipase 29 Urine Color YELLOW Urine Clarity CLEAR Urine pH 7.5 Ur Specific [place] 1.010 Urine Protein NEGATIVE Urine Glucose (UA) NEGATIVE Urine Ketones NEGATIVE Urine Occult Blood NEGATIVE Urine Nitrite NEGATIVE Urine Bilirubin NEGATIVE Urine Urobilinogen 0.2 (NORMAL) Ur Leukocyte Esterase NEGATIVE Ur Microscopic Review NOT INDICATED Urine Culture Comments NOT INDICATED Urine HCG, Qual NEGATIVE - Rads (name of study) pelvic US Radiology: Prelim report reviewed, EMP read contemporaneously, See rad report ( 1.8 cm complex right ovarian cyst with internal debris. Findings are most consistent with a hemorrhagic cyst. Small amount of fluid is present in the adnexa and in the pelvis. Both ovaries are otherwise unremarkable. IUD in expected position. No endometrial mass or polyp. . No uterine fibroids. section scar noted. ) PD MEDICAL DECISION MAKING - ED course Complexity details: reviewed results, re-evaluated patient, considered differential, d/w patient, d/w family ED course: Patient is a 27-year-old female who presents to the emergency department with acute onset of pelvic pain. Appears to have a right hemorrhagic ovarian cyst. Pain well controlled in the emergency department. Declines a pelvic examination here. Will treat symptomatically and see how she progresses over the next few days. She will return if she worsens. Normal vital signs. No significant anemia. Patient and family counseled regarding signs and symptoms for which I believe and urgent re-evaluation would be necessary. Patient with good understanding of and agreement to plan and is comfortable going home at this time This document was made in part using voice recognition software. While efforts are made to proofread this document, sound alike and grammatical errors may occur. Departure - Departure Disposition: 01 Home, Self Care Clinical Impression: Hemorrhagic cyst of right ovary Condition: Good Instructions: ED Cyst Ovarian Follow-Up: your,doctor within 1 week [Other] Prescriptions: Oxycodone HCl/Acetaminophen [Percocet 5-325 mg Tablet] 1 - 2 each PO Q6H PRN # 14 tablet PRN Reason: pain Comments: Return if you worsen. This should improve over the next few days. Do not drink alcohol or drive while on narcotic pain medicine. Note that many narcotic pain relievers also contain tylenol/acetaminophen. Please ensure that your total dose of acetaminophen from all sources does not exceed 3 grams (3000mg) per day. You may constipated on this medication, take a stool softener such as "Colace" twice a day while you are on it. Also recommend a iqrf-cqe-tjqqewx laxative such as senna or MiraLAX any day that you do not have a bowel movement. If you received narcotic pain medication in the emergency department, do not drive or operate machinery for the next 24 hours. Forms: Activity restrictions Discharge Date/Time: 03/21/17 19:38
--- NOTE | 2017-03-21 18:57 | Ultrasound Preliminary Report ---
Exam: US PELVIC NON OB W/DOPPLER IMPRESSION: 1. 1.8 cm complex right ovarian cyst with internal debris. Findings are most consistent with a hemorr hagic cyst. Small amount of fluid is present in adnexa and in the pelvis. Both ovaries are otherwise unremarkable. 2. IUD in expected position. No endometrial mass or polyp. 3. No uterine fibroids. section scar noted. [facility] SITE ID: [id number]
--- NOTE | 2017-03-21 19:12 | Ultrasound Report ---
EXAM: PELVIC ULTRASOUND EXAM DATE: 03/21/2017 06:27 PM. CLINICAL HISTORY: Pelvic pain, cramping. 2 months after section. IUD placed one month ago. COMPARISON: None. TECHNIQUE: Realtime transabdominal pelvic scan performed to identify the uterus and adnexa and as an overview of other pelvic structures, followed by transvaginal scan to provide greater detail of the u terus and adnexa, with static image documentation. FINDINGS: Uterus: 8.7 x 4.2 x 6.7 cm, volume 128 cc. Anteverted position. Normal overall size and echotexture. section defect in the lower uterine segment. Small amount of fluid is noted adjacent to the section scar. Masses: None. Endometrium: 10.9 mm. No endometrial mass or polyp. IUD is present in expected position. Cervix: Unremarkable. Right Ovary: 3.5 x 2.8 x 2.4 cm, volume 12 cc. Normal echotexture and blood flow. 1.8 x 1.3 x 1.5 cm right ovarian cyst with internal debris. Left Ovary: 2.5 x 1.3 x 1.6 cm, volume 2.7 cc. Normal echotexture and blood flow. Free Fluid: Fluid is present in both adnexa and in the cul-de-sac. Other: None. IMPRESSION: 1. 1.8 cm complex right ovarian cyst with internal debris. Findings are most consistent with a hemorr hagic cyst. Small amount of fluid is present in the adnexa and in the pelvis. Both ovaries are other vergara unremarkable. 2. IUD in expected position. No endometrial mass or polyp. 3. No uterine fibroids. section scar noted. [facility] Referring Provider Line: [phone] SITE ID: [id number]
[2017-03-21 19:33] VITALS: BP 108/64
== END 2017-03-21 19:38 | disposition home or self-care (01) ==
LOC: ED 16:41
DX: N83.201 Unspecified ovarian cyst, right side (principal); Z97.5 Presence of (intrauterine) contraceptive device; J45.909 Unspecified asthma, uncomplicated; F17.200 Nicotine dependence, unspecified, uncomplicated
CPT/HCPCS: 36415; 76830; 76856; 80053; 81003; 81025; 83690; 85025; 93975; 99283; A9270; 81001; 87086

== ENCOUNTER 2018-06-01 10:16 | Emergency (ER) | payer MEDICAID ==
--- NOTE | 2018-06-01 11:30 | ED Physician Documentation ---
PD HPI LOWER EXT INJURY - Stated complaint Stated Complaint: ANKLE PAIN - Chief complaint Chief Complaint: Ext Problem - History obtained from History obtained from: Patient - History of Present Illness PD HPI LOW EXT INJURY LOCATION: Right, Ankle Type of injury: Fall, Twist Where injury occurred: Home Timing - onset: Last night Timing - duration: Days (1) Timing - details: Abrupt onset, Intermittant Pain level now: 0 Improved by: Rest Worsened by: Moving Associated symptoms: Swelling. No: Weakness, Numbness, Tingling, Discolored Contributing factors: No: Anticoagulated, Prior ortho surgery, Work related Similar symptoms before: Has not had sx before Recently seen: Not recently seen - Additional information Additional information: 28-year-old female with history of asthma and denies based on a test done last week here with complaint of right ankle pain which started last night after she twisted and fell at home. States able to walk but with discomfort.States ankle is mildly swollen but denies any numbness. Review of Systems Ten Systems: 10 systems reviewed and negative Constitutional: denies: Myalgias Cardiac: denies: Chest pain / pressure Respiratory: denies: Dyspnea GI: denies: Abdominal Pain Musculoskeletal: reports: Extremity pain, Extremity swelling, Pain with weight bearing. denies: Neck pain, Back pain Neurologic: denies: Generalized weakness, Focal weakness, Numbness PD PAST MEDICAL HISTORY - Past Medical History Respiratory: Asthma Psych: Depression, Anxiety - Past Surgical History Past Surgical History: Yes /[employer]: section HEENT: Tonsil/Adenoidectomy - Present Medications Home Medications: Ambulatory Orders Medication Instructions Recorded Confirmed Hydrocodone/Acetaminophen [[place] 1 each PO Q6H PRN #12 tablet 05/28/18 06/01/18 5-325 Tablet] Metronidazole [Flagyl] 500 mg PO BID #14 tablet 05/28/18 06/01/18 Naproxen 375 mg PO BID #15 tablet 05/28/18 06/01/18 - Allergies Allergies/Adverse Reactions: Allergies Allergy/AdvReac Type Severity Reaction Status Date / Time codeine Allergy Intermediate Unknown Verified 06/01/18 10:23 Penicillins Allergy Intermediate Rash Verified 06/01/18 10:23 - Social History Does the pt smoke?: Yes Smoking Status: Current every day smoker Does the pt drink ETOH?: Yes Does the pt have substance abuse?: No - Immunizations Immunizations are current?: Yes - POLST Patient has POLST: No PD ED PE NORMAL - Vitals Vital signs reviewed: Yes - General General: Alert and oriented X 3, No acute distress, Well developed/nourished - HEENT HEENT: Moist mucous membranes - Neck Neck: Supple, no meningeal sign, No bony TTP - Cardiac Cardiac: RRR, Strong equal pulses - Respiratory Respiratory: No respiratory distress - Abdomen Abdomen: Non tender - Back Back: No CVA TTP, No spinal TTP - Derm Derm: Normal color, Warm and dry - Extremities Extremities: No deformity, No edema, No calf tenderness / cord, Other (Right ankle with mild swelling of the lateral malleolar area and no bony tenderness. Pulses +2. Strength 5/5. Sensation intact temperature normal. Capillary refill less than 2 seconds.) - Neuro Neuro: Alert and oriented X 3 - Psych Psych: Normal mood, Normal affect Results - Vitals Vitals: Vital Signs - 24 hr 06/01/18 10:21 Temperature 37.0 C Heart Rate 80 Respiratory 15 Rate Blood Pressure 121/78 O2 Saturation 99 Oxygen O2 Source Room air PD MEDICAL DECISION MAKING - ED course Complexity details: reviewed results, re-evaluated patient, considered differential (Ankle sprain, ankle fracture, ankle dislocation), d/w patient ED course: 1215 patient informed of x-ray results. Requesting for Aircast. Requesting for days of today and tomorrow. Instructed to do R.I.C.E. And follow-up with primary doctor. Departure - Departure Disposition: 01 Home, Self Care Clinical Impression: Ankle sprain Qualifiers: Encounter type: initial encounter Involved ligament of ankle: unspecified ligament Laterality: right Qualified Code(s): S93.401A - Sprain of unspecified ligament of right ankle, initial encounter Condition: Stable Instructions: ED Sprain Ankle Comments: You may use the Aircast as needed. Elevate your right leg. Apply ice on the affected area Today.Over the counter Tylenol or Motrin for pain. Follow-up with your primary doctor in a couple of weeks. If worse return to the emergency room. Forms: Activity restrictions
--- NOTE | 2018-06-01 12:00 | XRAY Report ---
Reason: twisted, pain Procedure Date: 06/01/2018 Accession Number: [id number] / [id number] Procedure: XR - Ankle 3 View RT CPT Code: FULL RESULT: EXAM: RIGHT ANKLE RADIOGRAPHY EXAM DATE: 06/01/2018 11:04 AM. CLINICAL HISTORY: Twisted, pain. COMPARISON: None. TECHNIQUE: 3 views. FINDINGS: Bones: Normal. No fractures or bone lesions. Joints: Normal. No effusion. No subluxations. The ankle mortise is normally aligned. Soft Tissues: Soft tissue swelling about the ankle. IMPRESSION: 1. No fracture. 2. Soft tissue swelling about the ankle which can be seen in the setting of soft tissue injury. [facility]
[2018-06-01 12:26] VITALS: BP 122/67
== END 2018-06-01 12:20 | disposition home or self-care (01) ==
LOC: ED 10:16
DX: S93.401A Sprain of unspecified ligament of right ankle, initial encounter (principal); W17.89XA Other fall from one level to another, initial encounter; X50.9XXA Other and unspecified overexertion or strenuous movements or postures, initial encounter; Y92.008 Other place in unspecified non-institutional (private) residence as the place of occurrence of the external cause; F17.200 Nicotine dependence, unspecified, uncomplicated
CPT/HCPCS: 99283

== ENCOUNTER 2018-06-17 14:54 | Outpatient (CLI) | payer MEDICAID ==
[2018-06-18 12:11] LABS: HEPATITIS C ANTIBODY NON-REACTIVE (NON-REACTIVE)
[2018-06-18 13:56] LABS: HIV AG/AB 4TH GEN NON-REACTIVE (NON-REACTIVE)
[2018-06-19 12:07] LABS: HSV 1 IGG TYPE SPECIFIC AB <0.90 index; HSV 2 IGG TYPE SPECIFIC AB <0.90 index
== END 2018-06-17 14:55 | disposition home or self-care (01) ==
LOC: LAB 14:54
PROVIDERS: ATTEND Obstetrics & Gynecology
DX: Z00.00 Encounter for general adult medical examination without abnormal findings (principal); Z91.89 Other specified personal risk factors, not elsewhere classified
CPT/HCPCS: 36415; 81599; 86317; 86592; 86695; 86696; 86803; 87389

== ENCOUNTER 2019-01-08 10:39 | Emergency (ER) | payer SELFPAY ==
[2019-01-08 10:45] VITALS: BP 109/74
--- NOTE | 2019-01-08 10:54 | ED Physician Documentation ---
History of Present Illness - Stated complaint Stated Complaint: HEAD PRESSURE/NAUSEA - History obtained from History obtained from: Patient - Additonal information Additional information: Patient is a 28-year-old female presenting with several weeks of head pressure diffusely, but specifically not pain. Patient also reports nausea without vomiting, but denies abdominal pain, urinary changes, stool changes, fever. Patient also denies sinus pain or pressure, rhinorrhea, sore throat, vision or ear complaints. Patient denies cough or difficulty breathing. No paralysis, paresthesias, facial droop. No inciting incident, illness, or trauma. She has tried Advil without much relief. No other improving or worsening factors noted. Review of Systems Constitutional: denies: Fever Eyes: denies: Loss of vision Nose: denies: Rhinorrhea / runny nose, Congestion Throat: denies: Sore throat Cardiac: denies: Chest pain / pressure Respiratory: denies: Dyspnea GI: reports: Nausea. denies: Abdominal Pain, Vomiting, Diarrhea : denies: Dysuria Neurologic: reports: Headache. denies: Generalized weakness, Focal weakness, Numbness, Head injury, LOC PD PAST MEDICAL HISTORY - Past Medical History Past Medical History: Yes Respiratory: Asthma Psych: Depression, Anxiety - Past Surgical History Past Surgical History: Yes /[employer] HEL[employer]: section HEENT: Tonsil/Adenoidectomy - Present Medications Home Medications: Ambulatory Orders Medication Instructions Recorded Confirmed Hydrocodone/Acetaminophen [[place] 1 each PO Q6H PRN #12 tablet 05/28/18 06/01/18 5-325 Tablet] Metronidazole [Flagyl] 500 mg PO BID #14 tablet 05/28/18 06/01/18 Naproxen 375 mg PO BID #15 tablet 05/28/18 06/01/18 - Allergies Allergies/Adverse Reactions: Allergies Allergy/AdvReac Type Severity Reaction Status Date / Time codeine Allergy Intermediate Unknown Verified 06/01/18 10:23 Penicillins Allergy Intermediate Rash Verified 06/01/18 10:23 - Social History Does the pt smoke?: Yes Smoking Status: Current every day smoker Does the pt drink ETOH?: Yes Does the pt have substance abuse?: No - Immunizations Immunizations are current?: Yes - POLST Patient has POLST: No PD ED PE NORMAL - Vitals Vital signs reviewed: Yes - General General: Alert and oriented X 3, No acute distress, Well developed/nourished - HEENT HEENT: Atraumatic, PERRL (Gross visual acuity intact. No nystagmus.), EOMI, Moist mucous membranes, Pharynx benign - Neck Neck: Supple, no meningeal sign - Cardiac Cardiac: RRR, No murmur - Respiratory Respiratory: No respiratory distress, Clear bilaterally - Abdomen Abdomen: Soft, Non tender, Non distended - Derm Derm: Normal color, Warm and dry, No rash - Extremities Extremities: No deformity, No tenderness to palpate - Neuro Neuro: Alert and oriented X 3, No motor deficit, No sensory deficit - Psych Psych: Normal mood, Normal affect Results - Vitals Vitals: Vital Signs - 24 hr 01/08/19 10:43 Temperature 36.8 C Heart Rate 88 Respiratory 16 Rate Blood Pressure 109/74 O2 Saturation 99 Oxygen O2 Source Room air PD MEDICAL DECISION MAKING - ED course Complexity details: considered differential, d/w patient ED course: Patient presenting with diffuse head pressure that she does not feel is painful. This is without inciting incident or trauma. Have low suspicion for closed head injury, concussion, intracranial injury. Given lack of significant pain, also have low suspicion for migraine or other particular kind of headache. Do not find evidence of neurological deficit or other complications that would raise suspicion for thrombus, bleed, stroke or other intracranial pathology. No signs of meningitis, sinusitis, or other infectious process. Do not feel patient requires emergent imaging or invasive testing at this time. Discussed iddu-qts-zxgfivo medications and offered Toradol in the ED, which was accepted. Also discussed return precautions and appropriate follow-up. Patient voiced understanding and is comfortable with discharge plan. Departure - Departure Disposition: 01 Home, Self Care Clinical Impression: Pressure in head Condition: Good Instructions: ED Cephalgia Unspecified Follow-Up: your,doctor [Other] - Within 3 Days Comments: May try jozq-iua-jiupzcl medications such as ibuprofen, Tylenol, Excedrin Migraine, as well as hydration, healthy diet, rest, and follow-up with primary care physician in next 2 to 3 days. Return to ED sooner if experience worsening symptoms or have other concerns.
[2019-01-08] MEDS ORDERED: KETOROLAC 60 MG/2 ML VIAL IM STA (11:07)
== END 2019-01-08 11:43 | disposition home or self-care (01) ==
LOC: ED 10:39
DX: R51 Headache (principal); R11.0 Nausea; F17.200 Nicotine dependence, unspecified, uncomplicated
CPT/HCPCS: 96372; 99283; 99284

== ENCOUNTER 2020-04-10 15:55 | Emergency (ER) | payer SELFPAY ==
[2020-04-10] MEDS ORDERED: PROPARACAINE 0.5% OPHTH DROPS 15 ML RIGHTEYE STA (16:07)
--- NOTE | 2020-04-10 17:22 | CT Report ---
PROCEDURE: ORBITS WO INDICATIONS: pain behind L eye, worsening, now vis. change TECHNIQUE: Noncontrast 3.0 mm axial images acquired through the orbits. COMPARISON: None. FINDINGS: Image quality: Excellent. Orbits: Globes are symmetrical. No metallic foreign bodies. The optic nerves are normal in size. No retrobulbar masses or fat abnormalities. The extra-ocular muscles are normal and symmetrical in a ppearance. Lacrimal glands are normal in size. Optic chiasm is normal. Intracranial: Visualized portions of the cerebral hemispheres, brainstem, and spinal cord are normal . Bones and sinuses: Visualized calvarium and facial bones appear intact. Visualized sinuses and mast oids are clear. IMPRESSION: CT orbits without acute abnormalities, mass lesions, or inflammatory changes. No findings to explain patient's symptoms. Reviewed by: Romaine Dwyer MD on 04/10/2020 4:21 PM [facility] Approved by: Romaine Dwyer MD on 04/10/2020 4:21 PM [facility] Station ID: [id number]
--- NOTE | 2020-04-10 17:22 | ED Physician Documentation ---
PD HPI OPHTHO - Stated complaint Stated Complaint: LT EYE PX/VISION CHANGES - Chief complaint Chief Complaint: Heent - History obtained from History obtained from: Patient - Additional information Additional information: PT comes to the emergency department complaining of eye pain for about the last week, now with some blurring of her vision around the edges of her visual fountain. Patient denies any headache. She states that she does have pain in the left eye when she turns her head from side to side and has to turn her head slowly. She denies any trauma. No drainage. No redness of the eye. She does not wear corrective lenses. No history of glaucoma. No other complaints at this time. Review of Systems Ten Systems: 10 systems reviewed and negative Constitutional: reports: Reviewed and negative Eyes: reports: Decreased vision, Other (pain) Ears: reports: Reviewed and negative Nose: reports: Reviewed and negative Throat: reports: Reviewed and negative Cardiac: reports: Reviewed and negative Respiratory: reports: Reviewed and negative GI: reports: Reviewed and negative : reports: Reviewed and negative Skin: reports: Reviewed and negative Musculoskeletal: reports: Reviewed and negative Neurologic: reports: Reviewed and negative Psychiatric: reports: Reviewed and negative Endocrine: reports: Reviewed and negative Immunocompromised: reports: Reviewed and negative PD PAST MEDICAL HISTORY - Past Medical History Past Medical History: Yes Respiratory: Asthma Psych: Depression, Anxiety - Past Surgical History Past Surgical History: Yes /[employer] SUPERINTENDENT: section HEENT: Tonsil/Adenoidectomy - Present Medications Home Medications: Ambulatory Orders Medication Instructions Recorded Confirmed No Known Home Medications 04/10/20 04/10/20 - Allergies Allergies/Adverse Reactions: Allergies Allergy/AdvReac Type Severity Reaction Status Date / Time codeine Allergy Intermediate Unknown Verified 04/10/20 16:03 Penicillins Allergy Intermediate Rash Verified 04/10/20 16:03 - Social History Does the pt smoke?: Yes Smoking Status: Current every day smoker Does the pt drink ETOH?: Yes Does the pt have substance abuse?: No - Immunizations Immunizations are current?: Yes - POLST Patient has POLST: No PD ED PE NORMAL - Vitals Vital signs reviewed: Yes - General General: Alert and oriented X 3, No acute distress - HEENT HEENT: Atraumatic, PERRL, EOMI, Moist mucous membranes - Neck Neck: Supple, no meningeal sign - Respiratory Respiratory: No respiratory distress - Derm Derm: Warm and dry - Extremities Extremities: No deformity - Neuro Neuro: Alert and oriented X 3, chuck tender 2-12 intact, Normal speech - Psych Psych: Normal mood, Normal affect PD ED PE EXPANDED - Eyes Eyes: PERRL, Normal accommodation, Normal eyelids, Nl conjunctiva/sclera, Normal corneas, Anterior chambers clear, Temp arteries nontender, Other (Mild tende rness to palpation of left globe. Tonometry average over 10 taps is 25. Visual acuity by nurse: OD 20/20, OS 20/40, OU 20/20). No: Eyelid swelling, Eyelid erythema, No eyelid FB (everted), Exudate, Scleral icterus, Corneal FB, Corneal ulcer, Fluorescein uptake, Papilledema, Retinal hemorrhage Results - Vitals Vitals: Oxygen O2 Source Room air - Rads (name of study) CT orbits w/o contrast Radiology: Final report received, EMP read indepedently, See rad report PD MEDICAL DECISION MAKING - ED course Complexity details: reviewed results, re-evaluated patient, considered differential, d/w patient ED course: I did not find any evidence of an emergent eye condition, and the patient's eye exam and CT were unremarkable. I discussed with the patient that she needs to follow-up with ophthalmology if she continues to have eye pain and change in vision for more than the next couple of days. I have encouraged her to call and make an appointment as soon as possible. Departure - Departure Disposition: 01 Home, Self Care Clinical Impression: Visual changes Pain in eye Qualifiers: Laterality: left Qualified Code(s): H57.12 - Ocular pain, left eye Condition: Stable Follow-Up: Rod Lao MD [Provider Admit Priv/Credential] - Nick Moore MD [Provider Admit Priv/Credential] - Comments: Your eye exam looks good today. Both the outside of your eye, as well as the retina, or network of nerves in the back of your eye, look good. Additionally, the blood vessels in the back of your eye appear normal and there is no evidence of bleeding or blockage of the vessels. Your CT scan does not show any mass, infection, or bleeding behind your eye. It is not clear why your "eyeball" hurts, but there is no evidence of an emergent condition causing this. You may take ibuprofen and Tylenol, and if you continue to have symptoms for more than the next few days, you will be to follow-up with the eyeglass lens cutter. Please refer to the contact information provided. Discharge Date/Time: 04/10/20 17:41
[2020-04-10 17:42] VITALS: BP 128/68
== END 2020-04-10 17:41 | disposition home or self-care (01) ==
LOC: ED 15:55
DX: H57.12 Ocular pain, left eye (principal); H53.8 Other visual disturbances; F17.200 Nicotine dependence, unspecified, uncomplicated
CPT/HCPCS: 70480; 99284; J3490

== ENCOUNTER 2020-05-09 13:44 | Outpatient (CLI) | payer MEDICAID ==
[2020-05-09] MEDS ORDERED: GADOBUTROL 10 MMOL/10 ML VIAL ONE (14:17)
[2020-05-09] MEDS ORDERED: GADOBUTROL 10 MMOL/10 ML VIAL IVP ONE (15:29)
--- NOTE | 2020-05-09 15:49 | MRI Report ---
PROCEDURE: Brain W/WO INDICATIONS: LT OPTIC NEURITIS CONTRAST: IV CONTRAST: Gadavist ml: 8.5 TECHNIQUE: Noncontrast axial T1 spin echo, axial T2 fast spin echo, sagittal and axial FLAIR, coronal T2 fast sp in echo, axial gradient echo, axial diffusion and ADC through the brain. After the administration of contrast, axial and coronal T1 spin echo with fat saturation through the brain. COMPARISON: None. FINDINGS: Image quality: Excellent. CSF spaces: Basal cisterns are patent. No extra-axial fluid collections. Ventricles are normal in size and shape. Brain: No midline shift. No intracranial bleeds or masses. No abnormal intracranial enhancement. There is cerebral volume loss for age. There is periventricular white matter chronic small vessel is chemic change. The brainstem appears normal. Diffusion-weighted images demonstrate no acute ischemi c insults. No chronic ischemic insults. Normal intravascular flow voids are present. Skull and face: Calvarial marrow is normal in signal. Orbits appear normal. Sinuses: Sinuses and mastoids appear clear. IMPRESSION: 1. Negative evaluation of the brain and orbits. No evidence of optic neuritis. 2. No evidence of demyelinating process. Reviewed by: Fei Cohn MD on 05/09/2020 3:48 PM PST Approved by: Fei Cohn MD on 05/09/2020 3:48 PM PST Station ID: [id number]
== END 2020-05-09 13:45 | disposition home or self-care (01) ==
LOC: DI 13:44
PROVIDERS: ATTEND Psychiatry & Neurology Neurology
DX: H46.9 Unspecified optic neuritis (principal)
CPT/HCPCS: 70553; A9585

== ENCOUNTER 2020-11-14 08:14 | Outpatient (CLI) | payer MEDICAID ==
[2020-11-14] MEDS ORDERED: GADOBUTROL 10 MMOL/10 ML VIAL ONE (08:19)
[2020-11-14] MEDS ORDERED: GADOBUTROL 10 MMOL/10 ML VIAL IVP ONE (11:23)
--- NOTE | 2020-11-14 11:36 | MRI Report ---
PROCEDURE: Cervical Spine W/WO INDICATIONS: LEFT OPTIC NEURITIS CONTRAST: IV CONTRAST: Gadavist ml: 7 TECHNIQUE: Noncontrast sagittal T1 spin echo and T2 fast spin echo, sagittal STIR, sagittal PD fast spin echo, f oraminal oblique sagittal T2 fast spin echo, axial gradient echo or T2 fast spin echo through the cer vical spine. After the administration of contrast, sagittal and axial T1 spin echo with fat saturati on through the cervical spine. COMPARISON: Correlation is made with overlapping portions of brain MRI, 05/09/2020 FINDINGS: Image quality: Motion artifact is noted. Alignment and curvature: There is normal bony alignment. Marrow: Marrow demonstrates normal overall signal. Spinal cord: Visualized spinal cord is normal in size, without white matter lesions. No suspicious intramedullary enhancement. No cerebellar tonsillar herniation. Paraspinous soft tissues: No paravertebral masses or suspicious enhancement. C2-C3: Normal in appearance. C3-C4: Normal in appearance. C4-C5: Level within normal limits. C5-C6: The disc height and disc signal are relatively well-preserved. At least moderate disc osteoph yte complex is seen, with a central/left disc osteophyte protrusion, as on series 602 images 18 and 1 9. Mild facet hypertrophy is seen. There is moderate bilateral neuroforaminal narrowing seen, right worse than left. Moderate to severe central canal narrowing is seen. Associated mass effect is seen upon the ventral spinal cord. C6-C7: The disc height and disc signal are relatively well-preserved. Moderate disc osteophyte comp garrick is seen. There is a superimposed central/right disc osteophyte protrusion, as on series 602 image 13. Mild facet hypertrophy is seen. No significant neuroforaminal narrowing can be seen. At least moderate central canal narrowing is seen, with associated mass effect upon the ventral spinal cord. C7-T1: The disc height and disc signal are well preserved. Mild to moderate disc osteophyte complex is seen. Mild to moderate bilateral neuroforaminal narrowing can be seen. Minimal central canal narro wing is seen. IMPRESSION: No abnormal white matter lesions are seen to suggest involvement of the cervical spinal cord with mul tiple sclerosis. No abnormal enhancement can be seen. Premature cervical spine degenerative changes are seen at C5-C6 and C6-C7. Reviewed by: Alvaro Sanches MD on 11/14/2020 10:34 AM AKDT Approved by: Alvaro Sanches MD on 11/14/2020 10:34 AM OMAR Station ID: [id number]
== END 2020-11-14 08:15 | disposition home or self-care (01) ==
LOC: DI 08:14
PROVIDERS: ATTEND Psychiatry & Neurology Neurology
DX: M50.222 Other cervical disc displacement at C5-C6 level (principal); M47.812 Spondylosis without myelopathy or radiculopathy, cervical region; M48.02 Spinal stenosis, cervical region; M48.03 Spinal stenosis, cervicothoracic region
CPT/HCPCS: 72156; A9585

== ENCOUNTER 2022-07-21 12:02 | Outpatient (CLI) | payer MEDICAID ==
--- NOTE | 2022-07-21 12:51 | XRAY Report ---
PROCEDURE: ThoracoLumbar 2 View INDICATIONS: FLANK PAIN, LEFT, RIGHT TECHNIQUE: 2 views acquired of the thoracolumbar spine. COMPARISON: None FINDINGS: Bones: No acute fractures or dislocations. Visualized inferior ribs appear intact. No suspicious b zakia lesions. Soft tissues: No suspicious soft tissue calcifications. IMPRESSION: Unremarkable radiographic examination of thoracolumbar spine. No gross renal calcification is seen. Reviewed by: Randall Chauhan MD on 07/21/2022 12:49 PM PST Approved by: Randall Chauhan MD on 07/21/2022 12:49 PM PST Station ID: [id number]
== END 2022-07-21 12:03 | disposition home or self-care (01) ==
LOC: DI 12:02
PROVIDERS: ATTEND Family Medicine
DX: R10.9 Unspecified abdominal pain (principal)

== ENCOUNTER 2024-01-16 12:54 | Outpatient (CLI) | payer OTHER, MEDICAID ==
--- NOTE | 2024-01-16 17:08 | XRAY Report ---
PROCEDURE: Hand 3+V LT INDICATIONS: CONTUSION OF LEFT HAND TECHNIQUE: 3 views of the hand(s) acquired. COMPARISON: None. FINDINGS: Bones: No fractures or dislocations. Normal alignment. Joint spaces are maintained. No suspicious b zakia lesions. Soft tissues: No suspicious soft tissue calcifications or masses. Mild diffuse soft tissue swelling. No radiopaque foreign body. IMPRESSION: No acute bony abnormality. If pain persists with conservative management, consider repeat radiographs in 10-14 days or cross-sectional imaging. Reviewed by: Flako Covarrubias MD on 01/16/2024 5:07 PM PDT Approved by: Flako Covarrubias MD on 01/16/2024 5:07 PM PDT Station ID: [id number]
== END 2024-01-16 23:59 | disposition home or self-care (01) ==
LOC: DI.N 12:54
PROVIDERS: ATTEND Family Medicine
DX: S60.222A Contusion of left hand, initial encounter (principal)